=== PATIENT | male | born 1930 | race Caucasian/White ===

== ENCOUNTER 2017-04-28 13:20 | Inpatient (IN) | payer MEDICARE, OTHER ==
[~2017-04-28] VITALS: Ht 182.9 cm; Wt 87.9 kg
[~2017-04-28 13:20] MED LIST: ASPIRIN EC81 M1 PO; CARDURA4 MG PO; LASIX20 MG PO; MOBIC7.5 MG PO; PRINIVIL20 MG PO; ZOCOR20 MG PO
[2017-04-28 14:13] LABS: HEMATOCRIT 33.8 % (42.0-54.0); HEMOGLOBIN 11.8 g/dL (13.5-17.5); MCH 32.4 pg (26.0-34.0); MCHC 34.9 g/dL (31.0-37.0); MCV 92.9 fL (80.0-100.0); MEAN PLATELET VOLUME 10.5 fL (7.4-10.4); NEUTROPHILS 89.5 % (40-80); PLATELET COUNT 135 10x3/uL (130-400); RBC 3.64 10x6/uL (4.20-6.10); RDW 13.1 % (11.5-14.5); WBC 8.4 10x3/uL (4.8-10.8)
[2017-04-28 14:29] LABS: ALBUMIN 3.5 g/dL (3.4-5.0); ALKALINE PHOSPHATASE 80 U/L (46-116); ALT (SGPT) 25 U/L (10-68); CALC OSMOLALITY 287 mosm/kg (275-300); CALCIUM 8.6 mg/dL (8.5-10.1); CARBON DIOXIDE 25.7 mmol/L (21.0-32.0); CHLORIDE - SERUM 105 mmol/L (98-107); CREATININE - SERUM 1.5 mg/dL (0.6-1.3); GLUCOSE 175 mg/dL (74-106); POTASSIUM - SERUM 3.6 mmol/L (3.5-5.1); SODIUM 140 mmol/L (136-145); UREA NITROGEN 26 mg/dL (7-18); eGFR NON AFRICAN AMERICAN 47 mL/min (90-120)
[2017-04-28 14:36] LABS: PRO BNP 1004 pg/mL (0-450)
[2017-04-28 14:54] LABS: TROPONIN-I < 0.017 ng/mL (0.000-0.060)
[2017-04-28 20:00] VITALS: BP 147/73
[2017-04-28 20:13] VITALS: BP 134/69; BMI 26.5
[2017-04-29] VITALS: BP 191/87
[2017-04-29 04:00] VITALS: BP 158/82
[2017-04-29 05:21] LABS: BASOPHILS 0.1 % (0-2); EOSINOPHILS 0.9 % (0-7); HEMATOCRIT 32.9 % (42.0-54.0); HEMOGLOBIN 10.9 g/dL (13.5-17.5); IMMATURE GRANULOCYTES 0.1 % (0-5); LYMPHOCYTES 7.6 % (15-50); MCH 31.8 pg (26.0-34.0); MCHC 33.1 g/dL (31.0-37.0); MONOCYTES 13.7 % (2-11); NEUTROPHILS 77.6 % (40-80); PLATELET COUNT 145 10x3/uL (130-400); RBC 3.43 10x6/uL (4.20-6.10); RDW 13.2 % (11.5-14.5)
[2017-04-29 05:24] LABS: MCV 95.9 fL (80.0-100.0)
[2017-04-29 05:51] LABS: ALBUMIN 2.9 g/dL (3.4-5.0); BILIRUBIN - TOTAL 0.43 mg/dL (0.2-1.3); CALCIUM 8.2 mg/dL (8.5-10.1); CARBON DIOXIDE 26.8 mmol/L (21.0-32.0); CREATININE - SERUM 1.2 mg/dL (0.6-1.3); POTASSIUM - SERUM 3.8 mmol/L (3.5-5.1); PROTEIN - SERUM 5.4 g/dL (6.4-8.2)
[2017-04-29 08:28] VITALS: BP 146/83
[2017-04-29 11:38] VITALS: BP 124/54
[2017-04-29 13:37] VITALS: Ht 182.9 cm; Wt 87.9 kg
[2017-04-29 15:18] VITALS: BP 121/51
[2017-04-29 19:00] VITALS: BP 139/74
[2017-04-30 04:00] VITALS: BP 131/58
[2017-04-30 04:48] LABS: BASOPHILS 0.2 % (0-2); EOSINOPHILS 1.8 % (0-7); HEMATOCRIT 33.2 % (42.0-54.0); HEMOGLOBIN 10.8 g/dL (13.5-17.5); IMMATURE GRANULOCYTES 0.2 % (0-5); LYMPHOCYTES 15.3 % (15-50); MCH 31.2 pg (26.0-34.0); MCHC 32.5 g/dL (31.0-37.0); MEAN PLATELET VOLUME 11.1 fL (7.4-10.4); MONOCYTES 14.7 % (2-11); NEUTROPHILS 67.8 % (40-80); PLATELET COUNT 161 10x3/uL (130-400); RBC 3.46 10x6/uL (4.20-6.10); RDW 13.4 % (11.5-14.5)
[2017-04-30 04:57] LABS: WBC 5.6 10x3/uL (4.8-10.8)
[2017-04-30 05:05] LABS: ALBUMIN 2.9 g/dL (3.4-5.0); ANION GAP 13.1 mmol/L (8-16); BILIRUBIN - TOTAL 0.4 mg/dL (0.2-1.3); CALCIUM 7.9 mg/dL (8.5-10.1); CARBON DIOXIDE 26.9 mmol/L (21.0-32.0); CREATININE - SERUM 1.4 mg/dL (0.6-1.3); PROTEIN - SERUM 5.7 g/dL (6.4-8.2)
[2017-04-30 08:18] VITALS: BP 136/60
[2017-04-30 11:11] VITALS: BP 132/66
[2017-04-30 12:06] LABS: APPEARANCE CLEAR (CLEAR); COLOR YELLOW (YELLOW)
[2017-04-30 12:07] LABS: BILIRUBIN NEGATIVE (NEGATIVE); GLUCOSE NEGATIVE (NEGATIVE); KETONE NEGATIVE (NEGATIVE); NITRITE NEGATIVE (NEGATIVE); PROTEIN NEGATIVE (NEGATIVE); UROBILINOGEN NORMAL (NORMAL)
[2017-04-30 21:54] VITALS: BP 137/58
[2017-05-01 01:14] VITALS: BP 164/74
[2017-05-01 05:38] LABS: BASOPHILS 0.2 % (0-2); EOSINOPHILS 2.7 % (0-7); HEMATOCRIT 35.2 % (42.0-54.0); HEMOGLOBIN 11.8 g/dL (13.5-17.5); IMMATURE GRANULOCYTES 0.2 % (0-5); LYMPHOCYTES 18.3 % (15-50); MCH 31.9 pg (26.0-34.0); MCHC 33.5 g/dL (31.0-37.0); MCV 95.1 fL (80.0-100.0); MEAN PLATELET VOLUME 10.9 fL (7.4-10.4); MONOCYTES 10.3 % (2-11); NEUTROPHILS 68.3 % (40-80); PLATELET COUNT 176 10x3/uL (130-400); RDW 13.1 % (11.5-14.5); WBC 5.2 10x3/uL (4.8-10.8)
[2017-05-01 05:54] LABS: ALBUMIN 3.5 g/dL (3.4-5.0); ANION GAP 13.3 mmol/L (8-16); BILIRUBIN - TOTAL 0.43 mg/dL (0.2-1.3); CALCIUM 8.6 mg/dL (8.5-10.1); CARBON DIOXIDE 26.7 mmol/L (21.0-32.0); CREATININE - SERUM 1.4 mg/dL (0.6-1.3); PROTEIN - SERUM 6.5 g/dL (6.4-8.2)
[2017-05-01 06:08] VITALS: BP 126/71
[2017-05-01 09:18] VITALS: BP 157/71
[2017-05-01] MEDS ORDERED: TAMIFLU75 MG PO (14:25)
== END 2017-05-01 15:55 | disposition home or self-care (01) | DRG 195 ==
LOC: D.ER 13:20 → D.M2 14:45
PROVIDERS: Emergency Medicine; Family Medicine
DX: J11.00 Influenza due to unidentified influenza virus with unspecified type of pneumonia (principal); J43.9 Emphysema, unspecified; D64.9 Anemia, unspecified; I25.10 Atherosclerotic heart disease of native coronary artery without angina pectoris; I10 Essential (primary) hypertension; E78.5 Hyperlipidemia, unspecified; G47.33 Obstructive sleep apnea (adult) (pediatric); N40.0 Benign prostatic hyperplasia without lower urinary tract symptoms; Z95.5 Presence of coronary angioplasty implant and graft; Z95.1 Presence of aortocoronary bypass graft

== ENCOUNTER → 2018-09-08 14:51 | Outpatient (CLI) | payer MEDICARE, OTHER ==
[2017-04-29 13:37] VITALS: BMI 26.4
[~2018-09-08 14:51] MED LIST changes: +TAMIFLU75 MG PO
== END | disposition home or self-care (01) ==
LOC: D.LAB 14:51
PROVIDERS: ATTEND Family Medicine
DX: N40.0 Benign prostatic hyperplasia without lower urinary tract symptoms (principal)

== ENCOUNTER 2018-09-30 07:05 | Day surgery (SDC) | payer MEDICARE, OTHER ==
[~2018-09-30] VITALS: Ht 180.3 cm; Wt 84.4 kg
[2018-09-30 07:34] LABS: BASOPHILS 0.4 % (0-2); HEMATOCRIT 35.7 % (42.0-54.0); HEMOGLOBIN 12.2 g/dL (13.5-17.5); IMMATURE GRANULOCYTES 0.2 % (0-5); LYMPHOCYTES 24.6 % (15-50); MCH 31.9 pg (26.0-34.0); MCHC 34.2 g/dL (31.0-37.0); MCV 93.2 fL (80.0-100.0); MEAN PLATELET VOLUME 10.8 fL (7.4-10.4); MONOCYTES 11.4 % (2-11); NEUTROPHILS 59.4 % (40-80); PLATELET COUNT 179 10x3/uL (130-400); RBC 3.83 10x6/uL (4.20-6.10); RDW 13.2 % (11.5-14.5); WBC 5.7 10x3/uL (4.8-10.8)
[2018-09-30 07:45] LABS: ANION GAP 10.9 mmol/L (8-16); CALCIUM 8.9 mg/dL (8.5-10.1); CARBON DIOXIDE 30.2 mmol/L (21.0-32.0); CREATININE - SERUM 1.5 mg/dL (0.6-1.3); POTASSIUM - SERUM 4.1 mmol/L (3.5-5.1)
[2018-09-30 09:36] VITALS: BP 180/70; Ht 180.3 cm; Wt 84.4 kg
--- NOTE | 2018-09-30 12:55 | NUR ---
REC'D FROM RR. FAMILY AT BEDSIDE. RELATES HE NEEDS TO USE THE BATHROOM. URINAL BROUGHT TO PATIENT DUE TO DIFFICULTY WAKING UP IN PACU PER REPORT FROM Patty CHOWDHURY RN.
--- NOTE | 2018-09-30 13:10 | NUR ---
COFFEE AND FL TRAY BROUGHT TO PATIENT. FAMILY AT BEDSIDE.
--- NOTE | 2018-09-30 13:55 | NUR ---
TOLERATED FL TRAY. FAMILY AT BEDSIDE. PT RELATES HE IS READY TO GO HOME.
--- NOTE | 2018-09-30 14:31 | OP ---
PATIENT NAME: LESLEY CR JR MEDICAL RECORD: [id number] :31 LOCATION:D.OPS ADMISSION DATE: SURGEON: DEON DOTSON MD DATE OF OPERATION: 09/30/2018 SURGEON: Deon Dotson MD ANESTHESIA: TIVA by Emy Szymanski CRNA. DIAGNOSIS: Obstructive benign prostatic hypertrophy. PROCEDURE: UroLift times 4. FINDINGS: Regrowth of the lateral lobes of the prostate, post-TURP. Heavily trabeculated bladder with cellules and diverticula and no bladder tumors. Single ureteral orifices bilaterally. ESTIMATED BLOOD LOSS: None. CLINICAL HISTORY: This is an 88-year-old male, who was referred by Dr. Holland for obstructive BPH symptoms. He is currently on finasteride and tamsulosin to treat this. Back in 2014, he had a TURP by Dr. Arizmendi. This was complicated by hypotension and chest pain postoperatively. Currently, he has nocturia times 3-5 with daytime urinary frequency due to diuretic use. He knows that the flow is sometimes slow. He feels empty after voiding. He is getting side effects from the tamsulosin, which includes some vertigo and dementia. His IPSS score is 14. His quality of life score is 5. He wishes to have the UroLift procedure done. HE IS ALLERGIC TO METOPROLOL. He was given Ancef front of house manager to the OR. DESCRIPTION OF PROCEDURE: The patient was given IV sedation. He was then placed into the lithotomy position and prepped and draped. The UroLift scope was introduced. The prostate showed signs of previous resection. There are some regrowth of the lateral lobes. The bladder neck seems relatively open. Going into the bladder, there was still heavy trabeculation of the bladder with cellules and diverticula. No bladder tumors were seen. Single ureteral orifices are seen on each side. The UroLift units were placed near the bladder neck at the anterolateral sulcus, 1.5 cm distal to the bladder neck. This opened up the bladder neck region fully. Another 2 units were placed at the anterolateral sulcus of the lateral lobe at the level of the verumontanum. He now has a very wide open prostatic urethra. The bladder was left partly full for a voiding trial. I will see him in followup in 1 months' time. TRANSINT:[id number] Voice Confirmation ID: [id number] DOCUMENT ID: [id number] DEON DOTSON MD at 1431 CC: [id number] DICTATION DATE: 09/30/18 1223 DIRECTOR CORPORATE: 09/30/18 1356 REG [facility] [address] [id number]
--- NOTE | 2018-09-30 14:35 | NUR ---
WRITTEN AND VERBAL DC INST. GIVEN TO PATIENT AND FAMILY ALONG WITH FOLLOW UP APPT. VERBALIZED UNDERSTANDING. AMBULATING WITH ASSIST OF CANE. IV DC'D WITH CATHETER INTACT.
--- NOTE | 2018-09-30 14:50 | NUR ---
DC'D HOME WITH FAMILY VIA PRIVATE VEHICLE. STABLE AT TIME OF DC.
== END 2018-09-30 14:50 | disposition home or self-care (01) ==
LOC: D.OPS 07:05 → D.PAN 09:30 → D.OPS 09:30
PROVIDERS: Anesthesiology; ATTEND Urology
DX: N40.1 Benign prostatic hyperplasia with lower urinary tract symptoms (principal); N13.8 Other obstructive and reflux uropathy; N32.89 Other specified disorders of bladder; N32.3 Diverticulum of bladder; Z01.812 Encounter for preprocedural laboratory examination

== ENCOUNTER 2018-12-21 06:49 | Day surgery (SDC) | payer MEDICARE, OTHER ==
[~2018-12-21] VITALS: Ht 180.3 cm; Wt 84.4 kg
[2018-12-21 07:12] LABS: BASOPHILS 0.5 % (0-2); EOSINOPHILS 2.8 % (0-7); HEMATOCRIT 35.5 % (42.0-54.0); HEMOGLOBIN 12.3 g/dL (13.5-17.5); IMMATURE GRANULOCYTES 0.2 % (0-5); LYMPHOCYTES 24.6 % (15-50); MCH 31.9 pg (26.0-34.0); MCHC 34.6 g/dL (31.0-37.0); MEAN PLATELET VOLUME 10.3 fL (7.4-10.4); MONOCYTES 13.5 % (2-11); NEUTROPHILS 58.4 % (40-80); PLATELET COUNT 191 10x3/uL (130-400); RBC 3.86 10x6/uL (4.20-6.10); RDW 12.9 % (11.5-14.5); WBC 6.1 10x3/uL (4.8-10.8)
[2018-12-21 07:24] LABS: ANION GAP 12.1 mmol/L (8-16); CALCIUM 8.8 mg/dL (8.5-10.1); CARBON DIOXIDE 29.1 mmol/L (21.0-32.0); CREATININE - SERUM 1.5 mg/dL (0.6-1.3); POTASSIUM - SERUM 4.2 mmol/L (3.5-5.1)
[2018-12-21] MEDS ORDERED: KLOR-CON 1010 MEQ PO (08:34)
[2018-12-21] MEDS ORDERED: FLOMAX0.4 MG PO (08:35)
[2018-12-21] MEDS ORDERED: PROSCAR5 MG (08:36)
[2018-12-21] MEDS ORDERED: DONEPEZIL HCL5 MG PO (08:36)
[2018-12-21] MEDS ORDERED: LIPITOR40 MG PO (08:37)
[2018-12-21 08:54] VITALS: BP 176/62; Ht 180.3 cm; Wt 84.4 kg
--- NOTE | 2018-12-21 13:19 | OP ---
PATIENT NAME: LESLEY CR JR MEDICAL RECORD: [id number] :31 LOCATION:D.OPS ADMISSION DATE: SURGEON: DEON DOTSON MD DATE OF OPERATION: 12/21/2018 SURGEON: Deon Dotson MD ANESTHESIA: TIVA by Galina Zamora CRNA. DIAGNOSIS: Slow urinary flow post-TURP and UroLift. PROCEDURE: Cystoscopy. FINDINGS: No urethral stricture, wide open prostatic urethra. No bladder tumors. BLOOD LOSS: None. CLINICAL HISTORY: This is an 88-year-old male, who had obstructive BPH symptoms. He had a TURP in [address] Arizmendi. He then had a UroLift times 4 on 10/01/2018. He still complains of nocturia times 3 with a narrow urinary stream, which splits and diverges in different directions. He comes today to have cystoscopy to check development of a urethral stricture. HE IS ALLERGIC TO METOPROLOL. He was given Ancef worksite wellness practitioner to the OR. DESCRIPTION OF PROCEDURE: The patient was given IV sedation. He was then placed into the lithotomy position and prepped and draped. A 17-Filipino cystoscope with 30-degree lens was used for visualization. No obstruction at all was found. The bladder was emptied through the cystoscope sheath and the scope was removed. I will see the patient in followup in 1 month's time. TRANSINT:[id number] Voice Confirmation ID: [id number] DOCUMENT ID: [id number] DEON DOTSON MD at 1319 CC: [id number] DICTATION DATE: 12/21/18 1058 CD[employer] COMPANY DRIVER: 12/21/18 1205 REG [facility] [address] [place] [address]
--- NOTE | 2018-12-21 14:05 | NUR ---
1150 REPORT TO PUMA NATARAJAN R.N. 1210 UP TO BATHROOM WITH ASSISTANCE OF Guzman BURTON. VOIDED. BACK TO BED. IV DC'ED WITH CATH INTACT. DRESSING. Kirsten NATARAJAN R.N. 1230 DRESSED. GIVEN DISCHARGE INSTRUCTIONS INCLUDING MED REC, RTC APPT., [facility] OPS D/C INSTRUCTIONS, & POST CYSTOSCOPY D/C INSTRUCTIONS BY Guzman BURTON R.N. TO PRIVATE CAR PER JOSEPHINE Walls. HOME WITH CHRIS. Kirsten NATARAJAN R.N.
== END 2018-12-21 12:30 | disposition home or self-care (01) ==
LOC: D.OPS 06:49 → D.PAN 09:30 → D.OPS 12:30 → D.PAN 13:00
PROVIDERS: Anesthesiology; ATTEND Urology
DX: R39.198 Other difficulties with micturition (principal); R35.1 Nocturia; Z01.812 Encounter for preprocedural laboratory examination

== ENCOUNTER 2019-08-24 12:50 | Inpatient (IN) | payer MEDICARE, OTHER ==
[~2019-08-24] VITALS: Ht 180.3 cm; Wt 88.6 kg
[~2019-08-24 12:50] MED LIST changes: +DONEPEZIL HCL5 MG PO; +FLOMAX0.4 MG PO; +KLOR-CON 1010 MEQ PO; +LIPITOR40 MG PO; +PROSCAR5 MG
[2019-08-24 14:31] LABS: BASOPHILS 0 % (0-2); EOSINOPHILS 0 % (0-7); HEMATOCRIT 38.2 % (42.0-54.0); HEMOGLOBIN 12.9 g/dL (13.5-17.5); IMMATURE GRANULOCYTES 0.2 % (0-5); LYMPHOCYTES 4.1 % (15-50); MCH 31.9 pg (26.0-34.0); MCHC 33.8 g/dL (31.0-37.0); MCV 94.6 fL (80.0-100.0); MEAN PLATELET VOLUME 10.4 fL (7.4-10.4); MONOCYTES 8.5 % (2-11); NEUTROPHILS 87.2 % (40-80); PLATELET COUNT 212 10x3/uL (130-400); RBC 4.04 10x6/uL (4.20-6.10)
[2019-08-24 14:36] LABS: CALC OSMOLALITY 288 mosm/kg (275-300); CALCIUM 9.1 mg/dL (8.5-10.1); CARBON DIOXIDE 24.1 mmol/L (21.0-32.0); CHLORIDE - SERUM 105 mmol/L (98-107); CREATININE - SERUM 1.4 mg/dL (0.6-1.3); GLUCOSE 160 mg/dL (74-106); POTASSIUM - SERUM 4.2 mmol/L (3.5-5.1); SODIUM 140 mmol/L (136-145); UREA NITROGEN 31 mg/dL (7-18); eGFR NON AFRICAN AMERICAN 51 mL/min (90-120)
[2019-08-24 14:40] LABS: APTT 30.7 SECONDS (22.8-39.4); INR 0.97 (0.85-1.17); PROTIME 12.8 SECONDS (11.6-15.0)
[2019-08-24 14:53] LABS: ALBUMIN 3.6 g/dL (3.4-5.0); ALKALINE PHOSPHATASE 113 U/L (30-120); ALT (SGPT) 27 U/L (10-68); BILIRUBIN - TOTAL 1.58 mg/dL (0.2-1.3); CKMB 21.1 U/L (0.0-3.6); PROTEIN - SERUM 6.7 g/dL (6.4-8.2); TROPONIN-I 0.019 ng/mL (0.000-0.060)
[2019-08-24 14:58] LABS: CREATINE KINASE 1174 UL (21-232)
[2019-08-24 17:09] LABS: BILIRUBIN NEGATIVE (NEGATIVE); GLUCOSE NEGATIVE (NEGATIVE); KETONE MODERATE mg/dL (NEGATIVE); NITRITE NEGATIVE (NEGATIVE); SPECIFIC GRAVITY 1.025 (1.005-1.020); UROBILINOGEN NORMAL (NORMAL)
[2019-08-24 17:12] LABS: BACTERIA MODERATE /hpf (NEGATIVE); RED CELLS - URINE 0-5 /hpf (0-5); WHITE CELLS - URINE 0-5 /hpf (NEGATIVE)
[2019-08-24 19:30] VITALS: BP 164/65
[2019-08-24 20:00] VITALS: BP 179/68
--- NOTE | 2019-08-24 20:01 | NUR ---
REPORT TO DANYELLE GRACIA
--- NOTE | 2019-08-24 20:10 | NUR ---
PT INCONTINENT OF BOWEL AND BLADDER. PERINEAL CARE AND LINEN CHANGE PROVIDED X2 ASSIST. PT REPOSTITIONED IN BED. DENIES CURRENT NEEDS. WILL CONTINUE TO MONITOR.
[2019-08-24 20:30] VITALS: BP 180/69
[2019-08-24 21:00] VITALS: BP 160/63
--- NOTE | 2019-08-24 21:05 | NUR ---
PT FROM ER VIA STRETCHER, PT MOVED TO BED PER NURSING, PT TOLERATED WELL, PT AAO X 2, RESP EVEN AND UNLABORED. NO DISTRESS NOTED, CL IN REACH, SR UP X 2.
--- NOTE | 2019-08-24 21:17 | NUR ---
THIS NURSE CALLED FLOOR TO SEE IF ROOM WAS CLEAN, NURSE STATED IT WAS. PT TAKEN TO FLOOR AT THIS TIME VIA STRETCHER
[2019-08-25] VITALS: BP 166/59
[2019-08-25 04:00] VITALS: BP 167/73
[2019-08-25 06:46] LABS: BASOPHILS 0.1 % (0-2); EOSINOPHILS 0.3 % (0-7); HEMATOCRIT 35.9 % (42.0-54.0); HEMOGLOBIN 11.8 g/dL (13.5-17.5); IMMATURE GRANULOCYTES 0.2 % (0-5); LYMPHOCYTES 8.3 % (15-50); MCH 31.5 pg (26.0-34.0); MCHC 32.9 g/dL (31.0-37.0); MCV 95.7 fL (80.0-100.0); MONOCYTES 12.2 % (2-11); NEUTROPHILS 78.9 % (40-80); PLATELET COUNT 204 10x3/uL (130-400); RBC 3.75 10x6/uL (4.20-6.10); RDW 13.3 % (11.5-14.5)
[2019-08-25 06:51] LABS: % SATURATION 50 % (15-55); IRON 86 ug/dl (35-150); TOTAL IRON BIND CAPACITY 171 ug/dl (260-445); UNSAT IRON BIND CAPACITY 85 ug/dl (150-375)
[2019-08-25 06:58] LABS: WBC 11.4 10x3/uL (4.8-10.8)
[2019-08-25 07:28] LABS: ALBUMIN 3.1 g/dL (3.4-5.0); ALKALINE PHOSPHATASE 81 U/L (30-120); ALT (SGPT) 25 U/L (10-68); BILIRUBIN - TOTAL 1.33 mg/dL (0.2-1.3); CALCIUM 8.5 mg/dL (8.5-10.1); CARBON DIOXIDE 24.2 mmol/L (21.0-32.0); CHLORIDE - SERUM 109 mmol/L (98-107); CKMB 8.6 U/L (0.0-3.6); CREATININE - SERUM 1.3 mg/dL (0.6-1.3); FERRITIN 191 ng/mL (3-244); LDH 265 U/L (85-227); PHOSPHOROUS 3.1 mg/dL (2.5-4.9); POTASSIUM - SERUM 4.1 mmol/L (3.5-5.1); PROTEIN - SERUM 5.7 g/dL (6.4-8.2); SODIUM 139 mmol/L (136-145); TROPONIN-I 0.057 ng/mL (0.000-0.060); UREA NITROGEN 34 mg/dL (7-18); eGFR NON AFRICAN AMERICAN 55 mL/min (90-120)
[2019-08-25 07:29] LABS: CALC OSMOLALITY 285 mosm/kg (275-300); CREATINE KINASE 414 UL (21-232); GLUCOSE 106 mg/dL (74-106)
--- NOTE | 2019-08-25 07:30 | NUR ---
PT LAYING SUPINE, RR EVEN AND UNLABORED. DENIES NEEDS OR PAIN AT THIS TIME. ASSISTED WITH SITTING UP FOR MEAL. SON AT BEDSIDE. POC DISCUSSED WITH PT AND SON. BOTH VERBALIZED AGREEMENT. CALL LIGHT WITHIN REACH. BED IN LOWEST POSITION. WILL CONTINUE TO MONITOR.
[2019-08-25 10:27] VITALS: BP 148/75
[2019-08-25 10:56] VITALS: Ht 180.3 cm; Wt 88.6 kg
--- NOTE | 2019-08-25 11:00 | NUR ---
BMX1 IN THE BED. PT CLEANED, LINENS AND GOWN CHANGED. SKIN TEAR NOTED TO RIGHT SIDE OF BACK. TEGADERM PLACED. SON STATES HE HAD THAT FROM HOME WHEN HE FELL. DENIES NEEDS OR PAIN AT THIS TIME. CALL LIGHT WITHIN REACH. BED IN LOWEST POSITION. WILL CONTINUE TO MONITOR.
[2019-08-25 14:00] VITALS: BP 181/76
--- NOTE | 2019-08-25 17:05 | NUR ---
I have reviewed this patient and I concur with the Shift Assessment completed by the Licensed Practical Nurse today this shift.
[2019-08-25 17:24] VITALS: BP 172/73
--- NOTE | 2019-08-25 19:30 | NUR ---
PT IN BED, AAO X 2, RESP EVEN AND UNLABORED. NO DISTRESS NOTED, CL IN REACH, SR UP X 2.
[2019-08-25 20:00] VITALS: BP 158/77
[2019-08-26 00:35] VITALS: BP 148/77
--- NOTE | 2019-08-26 03:41 | NUR ---
I have reviewed this patient and I concur with the Shift Assessment completed by the Licensed Practical Nurse today this shift.
[2019-08-26 04:00] VITALS: BP 163/80
[2019-08-26 04:42] LABS: BASOPHILS 0.2 % (0-2); HEMATOCRIT 32.8 % (42.0-54.0); HEMOGLOBIN 10.8 g/dL (13.5-17.5); IMMATURE GRANULOCYTES 0.1 % (0-5); LYMPHOCYTES 16.4 % (15-50); MCH 31.2 pg (26.0-34.0); MCHC 32.9 g/dL (31.0-37.0); MCV 94.8 fL (80.0-100.0); NEUTROPHILS 67.3 % (40-80); PLATELET COUNT 195 10x3/uL (130-400); RBC 3.46 10x6/uL (4.20-6.10); RDW 13.1 % (11.5-14.5)
[2019-08-26 04:47] LABS: WBC 8.1 10x3/uL (4.8-10.8)
[2019-08-26 05:12] LABS: ANION GAP 8.5 mmol/L (8-16); CALCIUM 8.3 mg/dL (8.5-10.1); CARBON DIOXIDE 25.2 mmol/L (21.0-32.0); CREATININE - SERUM 1.4 mg/dL (0.6-1.3); MAGNESIUM - SERUM 1.8 mg/dL (1.8-2.4); PHOSPHOROUS 3.4 mg/dL (2.5-4.9); POTASSIUM - SERUM 3.7 mmol/L (3.5-5.1)
--- NOTE | 2019-08-26 07:10 | NUR ---
PATIENT LAYING IN BED ON BACK AWAKE AND ALERT. ASSISTED PATIENT WITH HEARING AIDS AND DENTURES. REPOSITIONED PATIENT FOR COMFORT. PATIENT DENIES ANY NEEDS OR PAIN. PATIENT IS STABLE AND VSS. WILL CONTNUE WITH PLAN OF CARE. SR UP X 2 BED IN LOW POSITION AND CALL LIGHT IN REACH.
[2019-08-26 07:57] VITALS: BP 189/75
[2019-08-26 11:21] VITALS: BP 160/63
--- NOTE | 2019-08-26 11:58 | NUR ---
REHAB PRESCREENING Rehab referral received and chart reviewed. Mr. Kevin appears to be a good candidate for acute inpatient rehab. Please notify rehab id he is agreeable to come and participate in the required 3 hours of therapy per day. We will then begin his screen. Thank you for this referral! Rosalia Pyle, MVA STILL OPERATOR Rehab PD
--- NOTE | 2019-08-26 13:05 | NUR ---
PATIENT HAD CHAIR BATH, SHAVE AND ORAL CARE. COMPLETE LINEN CHANGE. MEPILEX APPLY TO RT UPPER BACK. PATIENT STATES HE IS SO HAPPY AND FEELS SO MUCH BETTER. PATIENT REMAINS IN BS CHAIR WILL CALL LIGHT IN REACH.
--- NOTE | 2019-08-26 13:30 | MORECARE ---
CASE MANAGEMENT DISCHARGE SUMMARY PATIENT: LESLEY CR JR UNIT: [id number] ADM DATE: 08/24/19 AGE: 89 : 31 SEX: M ROOM/BED: D.2108 AUTHOR: TRE WOOD PHYSICIAN: REFERRING PHYSICIAN: TENNILLE ARRIAGA MD DATE OF SERVICE: 08/26/19 Discharge Plan Patient Name: LESLEY CR [facility] [facility] 1930 Planned Disposition: Inpatient Rehab Anticipated Discharge Date: Discharge Date: Expected LOS: Initial Reviewer: [email or web address] Initial Review Date: 08/24/2019 Generated: 08/26/19 2:30 pm Patient Name: LESLEY CR Page [id number] at 1330 All edits/amendments must be made on the electronic document DICTATION DATE: 08/26/19 1330 SYSTEMS ADMINISTRATION ANALYST: EUGENIA 08/26/19 1330 RPT#: [id number] DC DATE: STATUS: ADM IN [facility] [address] [place] [address] END OF REPORT
--- NOTE | 2019-08-26 13:39 | MORECARE ---
CASE MANAGEMENT DISCHARGE SUMMARY PATIENT: LESLEY CR JR UNIT: [id number] ADM DATE: 08/24/19 AGE: 89 : 31 SEX: M ROOM/BED: D.2108 AUTHOR: TRE WOOD PHYSICIAN: REFERRING PHYSICIAN: TENNILLE ARRIAGA MD DATE OF SERVICE: 08/26/19 Discharge Plan Patient Name: LESLEY CR [facility] [facility] 1930 Planned Disposition: Inpatient Rehab Anticipated Discharge Date: Discharge Date: Expected LOS: Initial Reviewer: [email or web address] Initial Review Date: 08/24/2019 Generated: 08/26/19 2:39 pm DCPIA - Discharge Planning Initial Assessment Updated by [email or web address]: Acacia Lacey on 08/26/19 1:35 pm * Is the patient Alert and Oriented? Yes * How many steps to enter\exit or inside your home? 0/0 * PCP Yadiel Holland * Pharmacy [facility] * Preadmission Environment Home Alone * ADLs Independent * Equipment None * List name and contact numbers for known caregivers / representatives who currently or will assist patient after discharge: Margarita Cr (granddaughter) [phone] Tino Cr Granddaughter spouse) [phone] * Verbal permission to speak to the caregivers and representatives has been obtained from the patient. Yes * Community resources currently utilized None * Additional services required to return to the preadmission environment? Yes * Can the patient safely return to the preadmission environment? No * Has this patient been hospitalized within the prior 30 days at any hospital? No Last DP export: 08/26/19 12:30 p Patient Name: LESLEY CR Page 35176 at 1339 All edits/amendments must be made on the electronic document DICTATION DATE: 08/26/191338 STACKER: EUGENIA 08/26/191338 RPT#: [id number] DC DATE: STATUS: ADM IN [facility] [address] [place] [address] END OF REPORT
--- NOTE | 2019-08-26 13:48 | MORECARE ---
CASE MANAGEMENT DISCHARGE SUMMARY PATIENT: LESLEY CR JR UNIT: [id number] ADM DATE: 08/24/19 AGE: 89 : 31 SEX: M ROOM/BED: D.4371 AUTHOR: ISRAEL,DOC PHYSICIAN: REFERRING PHYSICIAN: TENNILLE ARRIAGA MD DATE OF SERVICE: 08/26/19 Discharge Plan Patient Name: LESLEY CR Facility: [facility]:[place] : 1930 Planned Disposition: Inpatient Rehab Anticipated Discharge Date: Discharge Date: Expected LOS: Initial Reviewer: [email or web address] Initial Review Date: 08/24/2019 Generated: 08/26/19 2:47 pm Comments DCP- Discharge Planning Updated by [email or web address]: Acacia Lacey on 08/26/19 12:[address] Patient Name: LESLEY CR Admission Status: ER Accout number: [id number] Admission Date: 08-24-2019 : 1930 Admission Diagnosis:ALTERED MENTAL STATUS, UNSPECIFIED Attending: TENNILLE ARRIAGA Current LOS: 2 Anticipated DC Date: Planned Disposition: Inpatient Rehab Primary Insurance: MEDICARE A & B Discharge Planning Comments: CM met with patient to complete initial dc planning assessment. CM educated patient on the CM role and verbal consent given by patient to complete assessment. CM verified patient's address, phone number, and emergency contact phone numbers. Patient lives at home independently prior to hospitalization. Patient wishes to be able to return to his home, after IP Rehab. VICTOR MANUEL signed for [facility] IP Rehab. Patient lives a few doors down from his granddaughter (Margarita Cr - [phone]) and she is able to check on him frequently. At discharge patient plans to go to IP Rehab, and then return home return and feels this is a safe discharge. Transportation provider at discharge will be Margarita. CM will continue to follow and will assist as needed with dc plans/needs. National Sales Executive: Acacia Lacey MSN,RN,CM DCPIA - Discharge Planning Initial Assessment Updated by [email or web address]: Acacia Lacey on 08/26/19 1:35 pm * Is the patient Alert and Oriented? Yes * How many steps to enter\exit or inside your home? 0/0 * PCP Yadiel Holland * Pharmacy [facility] in [facility] * Preadmission Environment Home Alone * ADLs Independent * Equipment None * List name and contact numbers for known caregivers / representatives who currently or will assist patient after discharge: Margarita Cr (granddaughter) [phone] Tino Cr Granddaughter spouse) [phone] * Verbal permission to speak to the caregivers and representatives has been obtained from the patient. Yes * Community resources currently utilized None * Additional services required to return to the preadmission environment? Yes * Can the patient safely return to the preadmission environment? No * Has this patient been hospitalized within the prior 30 days at any hospital? No Coverage Notice Reviewer: [email or web address] Ady Lacey Notice Issued Date-Time: 08/26/2019 13:00 Notice Type: Patient Choice Letter Notice Delivered To: Patient Relationship to Patient: Internet Developer Name: Delivery Method: HAND - Hand Delivered Monika Days: Prior Verbal Notification: Recipient Understood Notice: Yes Recipient Signature: Yes Med Rec Note Co-signed by Attending: Coverage Notice Comment: VICTOR MANUEL signed for IP rehab Last DP export: 08/26/19 12:39 p Patient Name: LESLEY CR Page 32834 at 1348 All edits/amendments must be made on the electronic document DICTATION DATE: 08/26/191346 JUNIOR LOAN PROCESSOR: EUGENIA 08/26/19 1347 RPT#: [id number] DC DATE: STATUS: ADM IN [facility] [address] [place] [address] END OF REPORT
[2019-08-26] MEDS ORDERED: LEVOFLOXAC250 MG/50 IV (16:30)
[2019-08-26] MEDS ORDERED: FOLATE0.4 MG PO (16:30)
--- NOTE | 2019-08-26 16:37 | NUR ---
OT NOTE: PT COMPLETED SIT TO STAND WITH MIN A. PT COMPLETED SITTING BALANCE WITH CGA. PT COMPLETED UE AROM EXS WHILE UP IN CHAIR. FAMILY MEMEBER HAD QUESTIONS ABOUT INPATIENT THERAPY. FERRER INFORMED HER TO CONTACT INPATIENT THERAPY WITH QUESTIONS. [phone] CARLOS [place]
[2019-08-26 16:54] VITALS: BP 134/66
--- NOTE | 2019-08-27 09:35 | MORECARE ---
CASE MANAGEMENT DISCHARGE SUMMARY PATIENT: LESLEY CR JR UNIT: [id number] ADM DATE: 08/24/19 AGE: 89 : 31 SEX: M ROOM/BED: D.0028 AUTHOR: TRE WOOD PHYSICIAN: REFERRING PHYSICIAN: TENNILLE ARRIAGA MD DATE OF SERVICE: 08/27/19 Discharge Plan Patient Name: LESLEY CR Facility: [facility]:[place] : 1930 Planned Disposition: Inpatient Rehab Anticipated Discharge Date: Discharge Date: 08/26/2019 Expected LOS: Initial Reviewer: [email or web address] Initial Review Date: 08/24/2019 Generated: 08/27/19 10:34 am Comments DCP- Discharge Planning Updated by [email or web address]: Acacia Lacey on 08/26/19 12:[address] Patient Name: LESLEY CR Admission Status: ER Accout number: [id number] Admission Date: 08-24-2019 : 1930 Admission Diagnosis:ALTERED MENTAL STATUS, UNSPECIFIED Attending: TENNILLE ARRIAGA Current LOS: 2 Anticipated DC Date: Planned Disposition: Inpatient Rehab Primary Insurance: MEDICARE A & B Discharge Planning Comments: CM met with patient to complete initial dc planning assessment. CM educated patient on the CM role and verbal consent given by patient to complete assessment. CM verified patient's address, phone number, and emergency contact phone numbers. Patient lives at home independently prior to hospitalization. Patient wishes to be able to return to his home, after IP Rehab. VICTOR MANUEL signed for [facility] IP Rehab. Patient lives a few doors down from his granddaughter (Margarita Cr - [phone]) and she is able to check on him frequently. At discharge patient plans to go to IP Rehab, and then return home return and feels this is a safe discharge. Transportation provider at discharge will be Margarita. CM will continue to follow and will assist as needed with dc plans/needs. Gis Scientist: Acacia Lacey MSN,RN,CM DCPIA - Discharge Planning Initial Assessment Updated by [email or web address]: Acacia Lacey on 08/26/19 1:35 pm * Is the patient Alert and Oriented? Yes * How many steps to enter\exit or inside your home? 0/0 * PCP Yadiel Holland * Pharmacy [facility] in [facility] * Preadmission Environment Home Alone * ADLs Independent * Equipment None * List name and contact numbers for known caregivers / representatives who currently or will assist patient after discharge: Margarita Cr (granddaughter) [phone] Tino Cr Granddaughter spouse) [phone] * Verbal permission to speak to the caregivers and representatives has been obtained from the patient. Yes * Community resources currently utilized None * Additional services required to return to the preadmission environment? Yes * Can the patient safely return to the preadmission environment? No * Has this patient been hospitalized within the prior 30 days at any hospital? No Coverage Notice Reviewer: [email or web address] Ady Laecy Notice Issued Date-Time: 08/26/2019 13:00 Notice Type: Patient Choice Letter Notice Delivered To: Patient Relationship to Patient: Petrophysicist Name: Delivery Method: HAND - Hand Delivered Monika Days: Prior Verbal Notification: Recipient Understood Notice: Yes Recipient Signature: Yes Med Rec Note Co-signed by Attending: Coverage Notice Comment: VICTOR MANUEL signed for IP rehab Last DP export: 08/26/19 12:47 p Patient Name: LESLEY CR Page 28092 at 0935 All edits/amendments must be made on the electronic document DICTATION DATE: 08/27/19933 ERRAND RUNNER: EUGENIA 08/27/19933 RPT#: [id number] DC DATE:08/26/19 STATUS: DIS IN [facility] [address] [place] [address] END OF REPORT
== END 2019-08-26 18:37 | DRG 682 ==
LOC: D.ER 12:50 → D.M2 17:51
PROVIDERS: Family Medicine; ADMIT Internal Medicine Nephrology; ATTEND Internal Medicine Nephrology
DX: N17.9 Acute kidney failure, unspecified (principal); G93.41 Metabolic encephalopathy; N39.0 Urinary tract infection, site not specified; M62.82 Rhabdomyolysis; I12.9 Hypertensive chronic kidney disease with stage 1 through stage 4 chronic kidney disease, or unspecified chronic kidney disease; N18.9 Chronic kidney disease, unspecified; D63.1 Anemia in chronic kidney disease; E78.5 Hyperlipidemia, unspecified; I25.10 Atherosclerotic heart disease of native coronary artery without angina pectoris; G47.33 Obstructive sleep apnea (adult) (pediatric); N40.0 Benign prostatic hyperplasia without lower urinary tract symptoms

== ENCOUNTER 2019-08-26 17:19 | Inpatient (IN) | payer MEDICARE, OTHER ==
[~2019-08-26] VITALS: Ht 180.3 cm; Wt 88.5 kg
[~2019-08-26 17:19] MED LIST changes: +FOLATE0.4 MG PO; +LEVOFLOXAC250 MG/50 IV
[2019-08-27 12:07] VITALS: Ht 180.3 cm; Wt 88.5 kg
[2019-09-08 08:00] VITALS: BP 164/70
== END 2019-09-08 11:05 | disposition home health service (06) | DRG 71 ==
LOC: D.REHAB 17:19
PROVIDERS: ADMIT Emergency Medicine; ATTEND Emergency Medicine
DX: G93.41 Metabolic encephalopathy (principal); N17.9 Acute kidney failure, unspecified; M62.82 Rhabdomyolysis; N39.0 Urinary tract infection, site not specified; I10 Essential (primary) hypertension; E78.5 Hyperlipidemia, unspecified; I25.10 Atherosclerotic heart disease of native coronary artery without angina pectoris; G47.33 Obstructive sleep apnea (adult) (pediatric); N40.0 Benign prostatic hyperplasia without lower urinary tract symptoms; M19.90 Unspecified osteoarthritis, unspecified site; F03.90 Unspecified dementia, unspecified severity, without behavioral disturbance, psychotic disturbance, mood disturbance, and anxiety; I12.9 Hypertensive chronic kidney disease with stage 1 through stage 4 chronic kidney disease, or unspecified chronic kidney disease; N18.9 Chronic kidney disease, unspecified; R73.9 Hyperglycemia, unspecified; D64.9 Anemia, unspecified